=== PATIENT | female | born 1980 | race Caucasian/White ===

== ENCOUNTER 2017-03-14 18:28 | Emergency (ER) | payer BC, MEDICAID ==
[~2017-03-14] VITALS: Ht 170.2 cm; Wt 66.7 kg
[2017-03-14] MEDS ORDERED: ONDANSETRON 4 MG/2 ML VIAL IV ONE (19:45)
[2017-03-14] MEDS ORDERED: IV NORMAL SALINE 1000 ML BAG IV ONE (19:45)
[2017-03-14] MEDS ORDERED: ONDANSETRON 4 MG/2 ML VIAL ONE (19:54)
[2017-03-14 20:02] LABS: BASOPHILS % (AUTO) 0.2 % (0.0-2.0); EOSINOPHILS # (AUTO) 0.1 K/uL (0.0-0.7); EOSINOPHILS % (AUTO) 0.7 % (0.0-7.0); HEMATOCRIT 36.9 % (37-47); HEMOGLOBIN 12.6 G/DL (12.0-16.0); LYMPHOCYTES # (AUTO) 1.1 K/UL (0.8-4.8); LYMPHOCYTES % (AUTO) 12.9 % (20.5-51.5); MEAN CORPUSCULAR HEMOGLOBIN 31.6 UUG (27.0-31.0); MEAN CORPUSCULAR HGB CONC 34 g/dL (32.0-37.0); MEAN CORPUSCULAR VOLUME 92.9 FL (81.0-99.0); MONOCYTES # (AUTO) 0.3 K/UL (0.1-1.30); NEUTROPHILS # (AUTO) 6.9 K/UL (1.8-8.9); NEUTROPHILS % (AUTO) 82.2 % (38.5-71.5); PLATELET COUNT (AUTO) 219 K/UL (150-450); RED BLOOD CELL COUNT(AUTO) 3.97 MIL/UL (4.2-5.4); WHITE BLOOD COUNT (AUTO) 8.4 K/UL (4.0-11.2)
[2017-03-14 20:17] LABS: CREATININE 0.7 mg/dL (0.6-1.3); POTASSIUM 3.2 mmol/L (3.5-5.1)
[2017-03-14 20:22] LABS: BILIRUBIN,DIRECT 0.1 mg/dL (0.0-0.2); BILIRUBIN,TOTAL 0.6 mg/dL (0.2-1.0)
[2017-03-14 20:23] LABS: TOTAL PROTEIN, SERUM 7.1 g/dL (6.4-8.2)
[2017-03-14 21:14] LABS: *BILIRUBIN,URIN NEGATIVE (NEGATIVE); *BLOOD, URINE NEGATIVE (NEGATIVE); *CLARITY,URINE SLIGHTLY CLOUDY (CLEAR); *COLOR,URINE YELLOW (YELLOW); *KETONES,URINE 4+ (NEGATIVE); *PROTEIN,URINE NEGATIVE (NEGATIVE); *UROBILINOGEN,URINE 0.2 E.U./dl (NORMAL); LEUKOCYTE ESTERASE ,URINE TRACE (NEGATIVE); NITRITE, URINE NEGATIVE (NEGATIVE); UGLUCOSE NEGATIVE (NEGATIVE)
[2017-03-14 21:20] LABS: BACTERIA,URINE RARE /HPF (NONE SEEN); RBC,URINE 0-3 /HPF (0-3); SQUAMOUS EPITHELIAL CELL,UR FEW /HPF (NONE SEEN)
--- NOTE | 2017-03-14 21:23 | NUR ---
Patient discharged to home in stable conditon. Written and verbal after care instructions given. Patient verbalizes understanding of instructions.
[2017-03-14 21:24] VITALS: BP 108/68
== END 2017-03-14 21:24 | disposition home or self-care (01) ==
LOC: ER 18:29
DX: O21.9 Vomiting of pregnancy, unspecified (principal); Z3A.12 12 weeks gestation of pregnancy
CPT/HCPCS: 36415; 80048; 80076; 81001; 85025; 96361; 96374; 99284; A4663; J2405; J7030

== ENCOUNTER 2023-05-30 09:12 | Emergency (ER) | payer BC, MEDICAID ==
[~2023-05-30] VITALS: Ht 170.2 cm; Wt 63.5 kg
[2023-05-30 09:16] VITALS: O2SAT 98
[2023-05-30] MEDS ORDERED: BENZ-13 PO (09:44)
[2023-05-30] MEDS ORDERED: IBUP-1955 PO (09:44)
== END 2023-05-30 10:15 | disposition home or self-care (01) ==
LOC: ER 09:15
DX: J06.9 Acute upper respiratory infection, unspecified (principal); R05.9 Cough, unspecified; R09.81 Nasal congestion; J02.9 Acute pharyngitis, unspecified
CPT/HCPCS: A4663

== ENCOUNTER 2024-01-15 09:51 | Emergency (ER) | payer MEDICAID ==
[~2024-01-15] VITALS: Ht 170.2 cm; Wt 59.0 kg
[~2024-01-15 09:51] MED LIST: BENZ-13 PO; IBUP-1955 PO
[2024-01-15] MEDS ORDERED: CHLO473M3 PO (10:08)
[2024-01-15] MEDS ORDERED: MOME17SP BNOSTRILS (10:08)
[2024-01-15 10:40] VITALS: BP 111/60; O2SAT 100
== END 2024-01-15 10:25 | disposition home or self-care (01) ==
LOC: ER 09:51
DX: J02.9 Acute pharyngitis, unspecified (principal); F32.A Depression, unspecified; Z79.899 Other long term (current) drug therapy
CPT/HCPCS: A4606; A4663

== ENCOUNTER 2024-02-16 11:56 | Emergency (ER) | payer MEDICAID ==
[~2024-02-16] VITALS: Ht 170.2 cm; Wt 57.2 kg
[~2024-02-16 11:56] MED LIST changes: +CHLO473M3 PO; +MOME17SP BNOSTRILS
[2024-02-16 12:07] VITALS: O2SAT 100
[2024-02-16] MEDS ORDERED: OXYMETAZOLINE NASAL 0.05% 15 ML SPRAY NS ONE (12:16)
[2024-02-16] MEDS: OXYMETAZOLINE NASAL 0.05% 15 ML SPRAY NS ONE (12:19)
== END 2024-02-16 12:32 | disposition home or self-care (01) ==
LOC: ER 11:56
DX: H83.8X3 Other specified diseases of inner ear, bilateral (principal); F32.A Depression, unspecified; Z79.899 Other long term (current) drug therapy
CPT/HCPCS: A4606; A4663